=== PATIENT | female | born 1950 | race Caucasian/White ===

== ENCOUNTER 2021-01-08 11:56 | Emergency (ER) | payer MEDICARE, BC ==
[~2021-01-08] VITALS: Ht 160 cm; Wt 90.7 kg
[2021-01-08] MEDS ORDERED: CHILDREN'S ASPI81 M1 PO (12:24)
[2021-01-08] MEDS ORDERED: NORVASC10 MG PO (12:25)
[2021-01-08] MEDS ORDERED: XANAX 0.5 MG0.5 M1 PO (12:25)
[2021-01-08] MEDS ORDERED: HYDROCODON-ACE1 EAC5 PO (12:26)
[2021-01-08] MEDS ORDERED: LOPRESSOR50 MG PO ×3 (12:27→12:28)
[2021-01-08] MEDS ORDERED: LISINOPRIL10 MG PO (12:29)
[2021-01-08] MEDS ORDERED: LEVO-T50 MCG PO (12:29)
[2021-01-08 12:30] LABS: ABSOLUTE BASOPHILS 0.1 thou/uL (0.0-0.2); ABSOLUTE EOSINOPHILS 0.1 thou/uL (0.0-0.7); ABSOLUTE LYMPHOCYTES 1.5 thou/uL (0.8-5.3); ABSOLUTE MONOCYTES 0.5 thou/uL (0.0-1.2); BASOPHILS 1.2 %; EOSINOPHILS 1.3 %; HEMATOCRIT 43.8 % (37.0-47.0); HEMOGLOBIN 14.6 gm/dL (12.0-15.0); MCH 30.7 pg (26.0-34.0); MCHC 33.4 g/dL (28.0-37.0); MPV 8.6 fl. (7.2-11.1); NUCLEATED RBCS 0 /100WBC; PLATELET COUNT* 293 thou/uL (150-400); POLYS 76.5 %; RBC 4.76 mil/uL (4.20-5.00); RDW-CV 12.9 % (10.5-14.5); WBC 9.2 thou/uL (4.0-11.0)
[2021-01-08 12:39] LABS: CALCIUM 9.5 mg/dL (8.5-10.1); CREATININE 0.8 mg/dL (0.6-1.3); POTASSIUM 4.4 mmol/L (3.5-5.1)
[2021-01-08 12:44] LABS: ALBUMIN 4.4 g/dL (3.4-5.0); TOTAL BILIRUBIN 0.4 mg/dL (<0.1-1.0); TOTAL PROTEIN 8.5 g/dL (6.4-8.2)
[2021-01-08 13:26] VITALS: BP 158/70
--- NOTE | 2021-01-08 15:43 | EKG ---
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
== END 2021-01-08 13:27 | disposition home or self-care (01) ==
LOC: M.ERS 11:56
PROVIDERS: Emergency Medicine
DX: R07.89 Other chest pain (principal); M54.9 Dorsalgia, unspecified; I10 Essential (primary) hypertension; G89.29 Other chronic pain